=== PATIENT | female | born 1965 | race Caucasian/White ===

== ENCOUNTER → 2017-12-16 | Outpatient (CLI) | payer OTHER ==
[~2017-12-16] MED LIST: BIRTH CONTROL; BUPROPION; DIAZEPAM; FLEXERIL PO; IBUPROFEN 800800 MG PO; JUNEL FE 1-201 EACH PO; LEVAQUIN 500 M500 M2 PO; LEVOTHROID; LEVOTHYROXIN0.075 MG PO; MEDROL DOSPAK21 TA1 PO; MOBIC7.5 MG PO; NEURONTIN 300M300 M2 PO; NORCO 5-325 TA1 EACH PO; PAXIL 20 MG TAB20 M1 PO; PENTASA; PERCOCET 5-3251 EACH PO; PREDNISONE 20 M20 M1 PO; PREDNISONE 20 M20 MG PO; RAYOS5 MG PO; REMICADE 1100 MG/VIA; ULTRAM 50MG TAB50 MG PO; VENTOLIN HFA 1818 GM INH
== END ==
LOC: RAD 01:16
DX: Z12.31 Encounter for screening mammogram for malignant neoplasm of breast (principal)

== ENCOUNTER → 2019-01-07 | Outpatient (CLI) | payer OTHER | LOC: RAD 11:08 | DX: Z12.31 Encounter for screening mammogram for malignant neoplasm of breast (principal) ==

== ENCOUNTER 2020-01-03 04:41 | Emergency (ER) | payer OTHER ==
[~2020-01-03] VITALS: Ht 167.6 cm; Wt 86.2 kg
[2020-01-03 04:43] VITALS: BP 145/95
[2020-01-03] MEDS ORDERED: VALTREX 500 MG500 MG PO (04:49)
[2020-01-03] MEDS ORDERED: MEDROLDOSEPACK (04:50)
[2020-01-03] MEDS ORDERED: HYDROXYCHLOROQUINE PO (04:51)
[2020-01-03] MEDS ORDERED: APRISO0.375 GM PO (05:02)
[2020-01-03] MEDS ORDERED: HUMIRA PEN40 MG/0.4 SUBQ (05:03)
[2020-01-03] MEDS ORDERED: ESTRADIOL 1 MG T1 M1 PO (05:03)
[2020-01-03] MEDS ORDERED: LEVO-T75 MCG PO (05:04)
[2020-01-03] MEDS ORDERED: PROVERA2.5 MG PO (05:05)
[2020-01-03 05:28] LABS: ABSOLUTE NEUTROPHILS 5.5 thou/uL (1.4-8.2); BASOPHILS 0.8 % (0.0-2.0); EOSINOPHILS 0.2 % (0.0-3.0); HEMATOCRIT 47.3 % (37.0-47.0); HEMOGLOBIN 15.9 gm/dL (12.0-15.0); LYMPHOCYTES 37.8 % (24.0-44.0); MCH 32.4 pg (26.0-34.0); MCHC 33.5 g/dL (28.0-37.0); MCV 96.5 fL (80.0-100.0); MONOCYTES 9.5 % (1.0-8.0); PLATELET COUNT 315 thou/uL (150-400); POLYS 51.7 % (36.0-66.0); RBC 4.91 mil/uL (4.20-5.00); RDW 12.6 % (10.5-14.5); WBC 10.7 thou/uL (4.0-11.0)
[2020-01-03 05:35] LABS: CALCIUM 8.7 mg/dL (8.5-10.1); CREATININE 0.7 mg/dL (0.6-1.0); POTASSIUM 3.8 mmol/L (3.5-5.1)
[2020-01-03] MEDS ORDERED: NORCO 5-325 TA1 EAC1 PO (06:46)
[2020-01-03] MEDS ORDERED: POLYMYXIN B/TMP10 ML RT. EYE (06:46)
== END 2020-01-03 07:07 | disposition still patient (30) ==
LOC: ER 04:41
PROVIDERS: Emergency Medicine Emergency Medical Services
DX: B02.9 Zoster without complications (principal); H92.01 Otalgia, right ear; Z79.899 Other long term (current) drug therapy

== ENCOUNTER → 2020-09-01 | Outpatient (CLI) | payer OTHER ==
[~2020-09-01] MED LIST changes: +APRISO0.375 GM PO; +ESTRADIOL 1 MG T1 M1 PO; +HUMIRA PEN40 MG/0.4 SUBQ; +HYDROXYCHLOROQUINE PO; +LEVO-T75 MCG PO; +MEDROLDOSEPACK; +NORCO 5-325 TA1 EAC1 PO; +POLYMYXIN B/TMP10 ML RT. EYE; +PROVERA2.5 MG PO; +VALTREX 500 MG500 MG PO
== END ==
LOC: RAD 07:58
PROVIDERS: ATTEND Internal Medicine
DX: Z12.31 Encounter for screening mammogram for malignant neoplasm of breast (principal)

== ENCOUNTER → 2021-10-05 | Outpatient (CLI) | payer OTHER | LOC: NUC 10:18 → BC 10:59 | PROVIDERS: ATTEND Internal Medicine | DX: Z12.31 Encounter for screening mammogram for malignant neoplasm of breast (principal); M85.88 Other specified disorders of bone density and structure, other site; M06.9 Rheumatoid arthritis, unspecified; E28.39 Other primary ovarian failure ==